=== PATIENT | female | born 1965 | race Caucasian/White ===

== ENCOUNTER 2018-08-05 07:09 | Emergency (ER) | payer MEDICAID ==
[~2018-08-05] VITALS: Ht 167.6 cm; Wt 81.8 kg
[2018-08-05 07:12] VITALS: BP 135/81
[2018-08-05] MEDS ORDERED: LIDOcaine 1% w/epiNEPHrine 1:200,000 30ml vial IM ONE (07:55)
[2018-08-05 07:58] LABS: COLOR,URINE YELLOW (Yellow); GLUCOSE, URINE NEGATIVE (Neg); KETONES,URINE NEGATIVE (Neg); LEUKOCYTE ESTERASE ,URINE LARGE (Neg); NITRITES, URINE POSITIVE (Neg); OCCULT BLOOD,URINE SMALL (Neg); PH,URINE 6.5 (4.8-8.0); PROTEIN,URINE NEGATIVE (Neg); UROBILINOGEN,URINE 0.2 E.U/dL (0.2-1.0)
[2018-08-05 08:10] LABS: CLARITY,URINE CLOUDY (Clear); UA COLLECTION TYPE NON-SPECIFIED
[2018-08-05 08:12] LABS: BACTERIA,URINE 4+ /HPF (Neg); RBC,URINE 0-2 /HPF (0-2); WBC,URINE TNTC /HPF (0-4)
[2018-08-05 08:13] LABS: SQUAMOUS EPITHELIAL CELL,UR MANY /LPF (FEW)
[2018-08-05] MEDS ORDERED: sulfamethoxazole/trimethoprim DS (800/160mg) tablet PO ONE (08:30)
[2018-08-05] MEDS ORDERED: HYDROcodone/acetaminophen 10/325mg tab PO ONE (10:50)
[2018-08-05] MEDS ORDERED: SULF1TAB49 PO (10:54)
== END 2018-08-05 11:15 | disposition home or self-care (01) ==
LOC: ER 07:10
DX: S00.551A Superficial foreign body of lip, initial encounter (principal); N39.0 Urinary tract infection, site not specified; F17.200 Nicotine dependence, unspecified, uncomplicated; W45.8XXA Other foreign body or object entering through skin, initial encounter; Y93.89 Activity, other specified; Y92.89 Other specified places as the place of occurrence of the external cause; Y99.8 Other external cause status
CPT/HCPCS: 10120; 81001; 99284; J3490

== ENCOUNTER 2018-08-27 22:16 | Emergency (ER) | payer MEDICAID, OTHER ==
[~2018-08-27] VITALS: Ht 167.6 cm; Wt 75.0 kg
[2018-08-27 22:31] VITALS: BP 116/77
[2018-08-28] MEDS ORDERED: ketorolac trometh inj. 60 MG/2 ML VIAL IM ONE (01:00)
[2018-08-28] MEDS ORDERED: DICL100G15 TOP (01:00)
== END 2018-08-28 01:16 | disposition home or self-care (01) ==
LOC: ER 22:17
DX: M25.511 Pain in right shoulder (principal); Z79.899 Other long term (current) drug therapy
CPT/HCPCS: 73030; 96372; 99283; J1885

== ENCOUNTER 2019-01-15 02:02 | Emergency (ER) | payer SELFPAY ==
[~2019-01-15] VITALS: Ht 167.6 cm; Wt 71.6 kg
[~2019-01-15 02:02] MED LIST: DICL100G15 TOP
[2019-01-15 02:15] VITALS: BP 101/63
[2019-01-15 03:42] LABS: CLARITY,URINE SLIGHTLY CLOUDY (Clear); COLOR,URINE YELLOW (Yellow); GLUCOSE, URINE NEGATIVE (Neg); KETONES,URINE NEGATIVE (Neg); LEUKOCYTE ESTERASE ,URINE LARGE (Neg); NITRITES, URINE POSITIVE (Neg); OCCULT BLOOD,URINE TRACE-INTACT (Neg); PROTEIN,URINE NEGATIVE (Neg); UROBILINOGEN,URINE 0.2 E.U/dL (0.2-1.0)
[2019-01-15 03:50] LABS: UA COLLECTION TYPE CLN CATCH MIDSTREAM
[2019-01-15 03:54] LABS: URINE AMPHETAMINE SCREEN NEGATIVE (Neg); URINE BARBITUATE SCREEN NEGATIVE (Neg); URINE BENZODIAZEPINES SCREEN NEGATIVE (Neg); URINE CANNABINOID SCREEN POSITIVE (Neg); URINE COCAINE SCREEN NEGATIVE (Neg); URINE METHADONE SCREEN NEGATIVE (Neg); URINE OPIATE SCREEN NEGATIVE (Neg); URINE PHENCYCLIDINE SCREEN NEGATIVE (Neg)
[2019-01-15 03:57] LABS: BACTERIA,URINE 3+ /HPF (Neg); MUCUS STRANDS NONE SEEN /LPF (Neg); RBC,URINE 0-2 /HPF (0-2); SQUAMOUS EPITHELIAL CELL,UR MODERATE /LPF (FEW)
[2019-01-15] MEDS ORDERED: CEPH-572 PO (04:52)
--- NOTE | 2019-01-15 04:57 | NUR ---
PT REFUSED HER CT SCAN MD WHITE
== END 2019-01-15 05:00 | disposition left against medical advice (07) ==
LOC: ER 02:03
DX: S06.0X0A Concussion without loss of consciousness, initial encounter (principal); S00.03XA Contusion of scalp, initial encounter; F10.129 Alcohol abuse with intoxication, unspecified; N39.0 Urinary tract infection, site not specified; Z79.899 Other long term (current) drug therapy; W18.39XA Other fall on same level, initial encounter; Y93.89 Activity, other specified; Y92.89 Other specified places as the place of occurrence of the external cause; Y99.8 Other external cause status; Y90.0 Blood alcohol level of less than 20 mg/100 ml
CPT/HCPCS: 36415; 80305; 80320; 81001; 87077; 87088; 87186; 99284

== ENCOUNTER 2019-10-24 19:57 | Emergency (ER) | payer OTHER ==
[~2019-10-24] VITALS: Ht 168.9 cm; Wt 72.0 kg
[2019-10-24 20:20] VITALS: BP 115/73
--- NOTE | 2019-10-24 23:00 | NUR ---
The patient was aggitated about the wait. She was adimient about leaving. Lonny BAKER tried to talk her into staying she would not. She eloped
== END 2019-10-24 22:00 | disposition left against medical advice (07) ==
LOC: ER 19:57
DX: H92.02 Otalgia, left ear (principal); Z53.21 Procedure and treatment not carried out due to patient leaving prior to being seen by health care provider

== ENCOUNTER 2021-03-25 12:55 | Emergency (ER) | payer OTHER ==
[~2021-03-25] VITALS: Ht 167.6 cm; Wt 75.0 kg
[2021-03-25 13:33] VITALS: BP 135/107
[2021-03-25] MEDS ORDERED: LIDOcaine 1% W/epiNEPHrine 1:200,000 10ml vial IJ ONE (13:40)
== END 2021-03-25 20:23 | disposition left against medical advice (07) ==
LOC: ER 12:56
DX: S01.81XA Laceration without foreign body of other part of head, initial encounter (principal); X58.XXXA Exposure to other specified factors, initial encounter; Y93.89 Activity, other specified; Y92.89 Other specified places as the place of occurrence of the external cause; Y99.8 Other external cause status
CPT/HCPCS: 99281